=== PATIENT | female | born 1940 | race Caucasian/White ===

== ENCOUNTER 2019-03-27 17:16 | Inpatient (IN) | payer MEDICARE, OTHER ==
[~2019-03-27] VITALS: Ht 165.1 cm; Wt 70.4 kg
[2019-03-27] MEDS ORDERED: SODIUM CHLORIDE 0.9% 1000ML 1,000 ML IV STA (17:41)
[2019-03-27] MEDS ORDERED: TRAMADOL HCL 50 MG TAB PO PRN (18:00)
[2019-03-27] MEDS ORDERED: SODIUM CHLORIDE FLUSH 10 ML SYR INJ PRN (18:00)
[2019-03-27] MEDS ORDERED: ONDANSETRON HCL INJ 2MG/ML 2ML 2 MG/ML VIAL IV PRN (18:00)
[2019-03-27] MEDS ORDERED: DEXTROSE 50% SYRINGE 50 ML IV PRN (18:00)
[2019-03-27 18:29] LABS: BASOPHILS % 0.4 % (0.0-1.0); HEMATOCRIT 33.9 % (34.2-44.1); LYMPHOCYTES # (AUTO) 2.1 (1.0-3.2); LYMPHOCYTES % 28.3 % (18.0-39.1); MEAN CORPUSCULAR HEMOGLOBIN 30.5 pg (28-32); MEAN CORPUSCULAR HGB CONC 32.4 g/dL (31-35); MEAN CORPUSCULAR VOLUME 93.9 fL (81-99); MONOCYTES # (AUTO) 0.8 (0.2-0.8); MONOCYTES % 10.3 % (4.4-11.3); NEUTROPHILS # (AUTO) 4.4 (2.1-6.9); NEUTROPHILS % 60.6 % (38.7-80.0); PLATELET COUNT 214 x10e3/uL (140-360); RED BLOOD COUNT 3.61 x10e6/uL (3.6-5.1); RED CELL DISTRIBUTION WIDTH 14.1 % (11.7-14.4)
[2019-03-27 18:39] LABS: INR 0.95; PROTHROMBIN TIME 13.2 seconds (11.9-14.5)
[2019-03-27 18:40] LABS: PARTIAL THROMBOPLASTIN TIME 28.9 seconds (23.8-35.5)
[2019-03-27 18:51] LABS: ALBUMIN 3.4 g/dL (3.5-5.0); ANION GAP 13.3 mmol/L (8-16); CALCIUM 9.5 mg/dL (8.4-10.2); CREATININE, SERUM 1.42 mg/dL (0.57-1.11); POTASSIUM 4.3 mmol/L (3.5-5.1)
[2019-03-27] MEDS: PIPER-TAZ 3.375 GM 50 ML IV SCH (18:55)
[2019-03-27 18:57] LABS: CREATINE KINASE MB 0.9 ng/mL (0-5.0)
--- NOTE | 2019-03-27 19:13 | Diagnostic Imaging Report ---
EXAMINATION: CHEST SINGLE (PORTABLE) INDICATION: ^ERMD ORDER ^[id number] ^1830 ^Y COMPARISON: None FINDINGS: AP view TUBES and LINES: None. LUNGS: Lungs are well inflated. There is no evidence of pneumonia or pulmonary edema. PLEURA: No pleural effusion or pneumothorax. HEART AND MEDIASTINUM: The cardiomediastinal silhouette is prominent on this AP view. BONES AND SOFT TISSUES: No acute osseous lesion. Soft tissues are unremarkable. UPPER ABDOMEN: No free air under the diaphragm. IMPRESSION: No acute thoracic abnormality. Signed by: Dr. Bean Charles MD on 03/27/2019 7:10 PM
--- NOTE | 2019-03-27 19:17 | Diagnostic Imaging Report ---
FOOT LEFT COMPLETE - 4 views HISTORY: Pain COMPARISON: None available. FINDINGS: Severe demineralization limits evaluation. Status post amputation of the second toe at the level of the metatarsophalangeal joint. No evidence of acute displaced fracture or dislocation. No definite evidence of erosion or periosteal reaction. Mild hallux valgus deformity. Vascular calcifications. Calcaneal enthesophytes. Soft tissue swelling of the midfoot. IMPRESSION: No definite evidence of osteomyelitis. If there is high clinical concern, consider MRI for further evaluation. Signed by: Dr. Bean Charles MD on 03/27/2019 7:14 PM
[2019-03-27 19:20] LABS: BILIRUBIN,URINE NEGATIVE (NEGATIVE); CLARITY,URINE CLEAR (CLEAR); COLOR,URINE YELLOW (YELLOW); KETONES,URINE NEGATIVE (NEGATIVE); LEUKOCYTE ESTERASE ,URINE NEGATIVE (NEGATIVE); NITRITE,URINE NEGATIVE (NEGATIVE); PROTEIN,URINE DIPSTICK NEGATIVE (NEGATIVE); URINE UROBILINOGEN 0.2 mg/dL (0.2 - 1)
[2019-03-27] MEDS: VANCOMYCIN 1GM/NS 250 ML 250 ML IV SCH (19:23)
[2019-03-27 19:31] LABS: BACTERIA,URINE FEW /HPF; EPITHELIAL CELLS,URINE FEW /LPF
--- NOTE | 2019-03-27 22:23 | NUR ---
HS CALLED FOR SITTER
[2019-03-27] MEDS: INSULIN REGULAR, HUMAN 100 UNIT/1 ML 3ML VIAL SQ SCH (22:49)
[2019-03-27] MEDS ORDERED: AMLODIPINE BESYL5 MG PO (22:53)
[2019-03-27] MEDS ORDERED: SERTRALINE HCL25 MG PO (22:53)
[2019-03-27] MEDS ORDERED: DOXEPIN HCL25 MG PO (22:53)
[2019-03-27] MEDS ORDERED: FUROSEMIDE20 MG PO (22:53)
[2019-03-27] MEDS ORDERED: GLIPIZIDE5 MG PO (22:53)
[2019-03-27] MEDS ORDERED: HALOPERIDOL LACTATE 5 MG/ML VIAL IV PRN (23:00)
--- NOTE | 2019-03-27 23:00 | NUR ---
PT PLCED INTO ROOM 1, SITTER AT BEDSIDE Addendum: 03/28/19 at 0338 by CIELO PT PLACED INTO ROOM 1, SITTER AT BEDSIDE
[2019-03-28] MEDS: PIPER-TAZ 3.375 GM 50 ML IV SCH ×3 (03:31→21:00)
--- NOTE | 2019-03-28 05:29 | NUR ---
PT COMPLAINS OF EVE FEET PAIN, PT PLACED ONTO AIR MATRESS AND PAIN MEDICATION GIVEN FOR COMFORT
[2019-03-28] MEDS: VANCOMYCIN 1GM/NS 250 ML 250 ML IV SCH (05:50)
[2019-03-28 06:54] LABS: BASOPHILS % 0.5 % (0.0-1.0); EOSINOPHILS % 0.3 % (0.0-6.0); HEMATOCRIT 29.2 % (34.2-44.1); HEMOGLOBIN 9.3 g/dL (12.0-16.0); LYMPHOCYTES # (AUTO) 1.3 (1.0-3.2); LYMPHOCYTES % 22.9 % (18.0-39.1); MEAN CORPUSCULAR HEMOGLOBIN 30.4 pg (28-32); MEAN CORPUSCULAR HGB CONC 31.8 g/dL (31-35); MEAN CORPUSCULAR VOLUME 95.4 fL (81-99); MONOCYTES # (AUTO) 0.5 (0.2-0.8); MONOCYTES % 8.3 % (4.4-11.3); NEUTROPHILS # (AUTO) 3.9 (2.1-6.9); NEUTROPHILS % 67.7 % (38.7-80.0); PLATELET COUNT 162 x10e3/uL (140-360); RED BLOOD COUNT 3.06 x10e6/uL (3.6-5.1); RED CELL DISTRIBUTION WIDTH 14.1 % (11.7-14.4)
[2019-03-28 07:17] LABS: ALBUMIN 2.6 g/dL (3.5-5.0); ANION GAP 9.7 mmol/L (8-16); CALCIUM 8.4 mg/dL (8.4-10.2); CREATININE, SERUM 1.05 mg/dL (0.57-1.11); POTASSIUM 3.7 mmol/L (3.5-5.1)
[2019-03-28] MEDS ORDERED: ZOLPIDEM TARTRATE 5 MG TAB PO PRN (08:30)
[2019-03-28] MEDS: AMLODIPINE BESYLATE 5 MG TAB PO SCH (08:43)
[2019-03-28] MEDS: SODIUM CHLORIDE 0.45% 1,000 ML IV SCH (08:43)
[2019-03-28] MEDS: DOXEPIN HCL 25 MG CAP PO SCH ×2 (08:43→17:56)
[2019-03-28] MEDS: INSULIN REGULAR, HUMAN 100 UNIT/1 ML 3ML VIAL SQ SCH ×4 (08:43→21:00)
[2019-03-28] MEDS: GLIPIZIDE 5 MG TAB PO SCH (08:55)
--- NOTE | 2019-03-28 08:58 | Pre Op History & Physical ---
CHIEF COMPLAINT: Poorly healing wound in the left foot. HISTORY OF PRESENT ILLNESS: The patient is an 78-year-old woman with [id number] diabetes and hypertension. She had a prior amputation of the 2nd digit of the left foot. She has been receiving wound care for several months at [place], but the wound on her foot has not been healing. She was evaluated by Vascular Surgery and had a venous duplex and arterial duplex that showed monophasic waveforms in the posterior tibial and anterior tibial areas suggestive of improved popliteal peripheral artery disease. She was subsequently referred for peripheral angiogram and possible intervention. PAST MEDICAL HISTORY: 1. Diabetes. 2. Hypertension. 3. Peripheral vascular disease. 4. Chronic renal disease stage 3. SOCIAL HISTORY: The patient is not a smoker. She is not a drinker. ALLERGIES: THE PATIENT HAS NO KNOWN DRUG ALLERGIES. FAMILY HISTORY: Noncontributory. REVIEW OF SYSTEMS: She is not febrile. She has no headache. She is not complaining of chest pain or difficulty breathing. She has no abdominal pain. There is no nausea or vomiting. She does complain of pain in the left foot and poorly healing wound. PHYSICAL EXAMINATION: VITAL SIGNS: The patient is afebrile. The vital signs are stable. HEENT: Shows no facial swelling or erythema. LYMPHATIC: Shows no submandibular, cervical, or supraclavicular adenopathy. CARDIAC: Reveals regular rate and rhythm with normal S1, S2. LUNGS: Auscultation of lungs reveals clear breath sounds bilaterally. There is no wheezing. ABDOMEN: Soft, nontender. There is no rebound or guarding. EXTREMITIES: Shows a prior amputation of the 2nd digit of the left foot. There is a wound in the area of the amputation with some eschar over it. There is no surrounding erythema or pustulant. The patient has poor pulses both in the anterior and the posterior circulations. IMPRESSION: 1. Cellulitis with nonhealing ulceration of the left foot. 2. Peripheral vascular disease with rest pain. 3. Diabetes. 4. Hypertension. PLAN: 1. The patient will be continued on antibiotics. 2. Interventional Cardiology to perform angiogram and possible intervention. 3. Wound care. 4. Podiatry consultation. 5. Monitor blood sugars and blood pressure. MD FELIPE Martinez/MODL /[id number]
--- NOTE | 2019-03-28 11:40 | NUR ---
WOUND CARE CONSULTATION: INITIAL EVALUATION Patient admitted for pain to left foot and non healing left foot wounds. DX; Left Foot Cellulitis, PVD, Non Healing DFU. Dr. Patricio Gama DPM consulted for managed care of foot ulcers. WC Consulted for evaluation and recommendation of foot ulcers. WBC5.77 HGB9.3 HCT29.2 GLU87 ALB3.4 AWV1YPt History Noted Venous Duplex: Monophasic waveforms PT, AT. Suggestive of improved popliteal peripheral artery disease. Patient referred to peripheral angiogram & possible intervention under care of Dr. Umaña. PATIENT VISIT Patient calm cooperative and in good spirits. Greenlandic Speaking Only Denies pain or discomfort. - Left Foot gangrenous ulceration to left foot 2nd toe amputation site. Sutures to proximal aspect still visible and attached to gangrenous tissue. Eschar appears detached at base and firm superficially but boggy at base of wound indicating autolytic debridement taking place. Small open area at center of wound exposing bone of 2nd metatarsal. Wound measures 6x2.5x0.4 probing to bone.No drainage noted. Able to obtain deep culture swab. - Left Foot Lateral - Open ulceration with 90% non-viable tissue. Mostly dry to touch although noted drainage to pillow. 4x2.5.x0.2 IMPRESSION 1. Lower Back & Gluteal Areas - Scattered scabs x2- Stable Healing- Non pressure related. 2. Left Foot DFU grade 3 with PVD, Recent Amputation of 2nd Toe. Non Healin. Left Foot Lateral - Non Healing DFU Grade 3 - RECOMMENDATION 1. Lower Back & Gluteal Areas - Wash with mild soap and water then pat dry thoroughly daily. - Apply Midway Cream q12h and PRN Soiling. 2. Left Foot DFU grade 3 with PVD, Recent Amputation of 2nd Toe. Non Healing: - Cleanse wound with NS and 4x4 gauze daily - Apply Betadine Moistened Gauze dressing Daily 3. Left Foot Lateral - Non Healing DFU Grade 3 - - Cleanse wound with NS and 4x4 gauze daily - Apply Betadine Moistened Gauze dressing Daily 4. Alternating Pressure Air Mattress and set to patient current weight. 5. Offload Heels with Pillows While in bed 6. Turn and Reposition every 2 hours using turning clock schedule. 7. Initiate Moderate PUP Addendum: 03/28/19 at 1159 by Edu Boo RN PATIENT VISIT- CONTINUED: Bilateral Heels intact. No Pressure ulcers noted Bilateral feet difficult to palpate pulses. Mild edema to LLE when compared to right foot Werner Score 16 Diapered. Low back and gluteal areas presents with two annular superficial scabs, non pressure related. Stable. Thank you for consulting with Wound Care. Addendum: 03/28/19 at 1200 by Edu Boo RN Amended: Links added.
[2019-03-28 13:08] VITALS: BP 122/56
[2019-03-28] MEDS: ZINC OXIDE / BALSAM PERU 30 GM TUBE TOP SCH ×2 (14:00→21:00)
--- NOTE | 2019-03-28 16:00 | NUR ---
Patient is refusing to let me start a new IV. Her family is present and trying to calm her down but she is persistently refusing. Will try again later.
--- NOTE | 2019-03-28 17:00 | NUR ---
Notified Jarett of consult and patient is on the floor.
[2019-03-28 17:15] VITALS: BP 157/69
[2019-03-28 17:22] VITALS: BP 157/69
--- NOTE | 2019-03-28 17:45 | NUR ---
Patient continues to let staff start IV.
--- NOTE | 2019-03-28 18:10 | NUR ---
Patient is confused , unable to provide family history for admission
--- NOTE | 2019-03-28 18:31 | NUR ---
IV to right AC area started, 20g x 1 stick.
[2019-03-28 20:00] VITALS: BP 154/81
--- NOTE | 2019-03-28 20:15 | NUR ---
PATIENT CONDITION STABLE WITHOUT ACUTE DISTRESS, SHE HAS A FLAT AFFECT AND A SITTER AT THE BEDSIDE. DR HEWITT SAW THE PATIENT, HE REMOVED THE DRESSING FROM HER LEFT FOOT TO ASSESS HER WOUND. THE SITES ARE BLACK WITHOUT DRAINAGE. WET TO DRY DRESSING WITH BETADINE SOLUTION APPLIED STATED BY THE DOCTOR. UNABLE TO PALPATE THE PULSE TO THE LEFT FOOT BUT IS WAS ASSESSED BY THE DOPPLER. CALL LIGHT WITHIN EASY REACH, SHE QUICKLY WENT TO SLEEP AFTER THE DRESSING CHANGE.
[2019-03-28 21:07] VITALS: BP 154/81
--- NOTE | 2019-03-28 21:26 | Progress Note ---
DATE: Cardiology Progress Note SUBJECTIVE: The patient is seen in the room only this evening and I come to know about this admission only this evening. The patient, Dewayne Joel, is known to me for many years, but she has a chronic left foot ulceration and the patient is being treated by surgery and also ID in [facility] and the patient is brought here for arteriogram and which I will be able to do only on Sunday or so as the patient at this time given IV antibiotics and other medications. We will continue the same medication she was taking. I will also talk to Dr. Acosta, and the prior machine joint cutter. Her wound on the foot is there for more than a few weeks to maybe a few months or so, it is a chronic infection, is not acute infection and also had one toe amputation. I will see this patient thoroughly in am.. MD ROSALES Kelly/INDIA /[id number] MTDHemant
[2019-03-29] VITALS (7 sets, daily range): BP systolic 91–180; BP diastolic 61–79
--- NOTE | 2019-03-29 00:47 | NUR ---
PATIENT IS SOUNDLY ASLEEP, NO RESPIRATORY DISTRESS OBSERVED AND NO ATTEMPTS MADE TO GET OUT OF THE BED. CALL LIGHT WITHIN EASY REACH, SITTER WITH THE PATIENT.
--- NOTE | 2019-03-29 01:12 | Consultation ---
DATE OF CONSULTATION: REASON FOR CONSULTATION: Nonhealing left foot. HISTORY OF PRESENT ILLNESS: Obtained from the chart. She is an 78-year-old female with a history of diabetes and peripheral arterial disease. Apparently, had a 2nd digit amputation done, has been following up with Podiatry at the wound care center at [facility] with a nonhealing 2nd digit amputation site. Unfortunately, this area continues to encrust. Uncertain reason for direct admission, presumably the nonhealing or perhaps increasing pain for the same. I was asked to eval. REVIEW OF SYSTEMS: Eleven-point review of systems negative. PAST MEDICAL HISTORY: Diabetes mellitus, hypertension, peripheral arterial disease, and end-stage renal disease stage 3. SOCIAL HISTORY: Noncontributory. ALLERGIES: NO KNOWN DRUG ALLERGIES. FAMILY HISTORY: Noncontributory. PHYSICAL EXAMINATION: GENERAL: AAO x3. NAD. VITAL SIGNS: Stable. She is afebrile. HEENT: Normocephalic, atraumatic. Anicteric. ABDOMEN: Soft, nontender, and nondistended. RESPIRATORY: Symmetrical expansion. No distress. PSYCHIATRIC: Normal affect. EXTREMITIES: Indeed necrotic. A 2nd digit amputation site with proximal flaps, albeit with flaps nonhealing, significant amount of sclerotic tissue. There is no eschar. Essentially the area is dry. She has poor peripheral pulses. ASSESSMENT: Nonhealing 2nd digit amputation site with also lesions on the mid foot laterally. PLAN: At this point, recommend stabilize vascular assessment, local wound care. Wound Care has been consulted from a Podiatry standpoint, at this point provide no value as highly unlikely that she is a TMA candidate; however, for such decisions, she can definitely go back to Dr. Aparicio who will presumably perform the 2nd digit amputation, but at this point I will sign off and local wound care consistent with Betadine wet-to-dry or per wound care nurses orders. We likely thank Dr. Garcia for the consultation on the patient. ROBERT Parks/MODL /[id number]
[2019-03-29] MEDS: SODIUM CHLORIDE 0.45% 1,000 ML IV SCH ×2 (01:30→10:10)
--- NOTE | 2019-03-29 04:02 | NUR ---
PATIENT REMAINS ASLEEP WITHOUT RESPIRATORY DISTRESS, SHE'S EASY TO AROUSE AND SHE DENIES PAIN. CALL LIGHT WITHIN EASY REACH, SITTER WITH THE PATIENT.
[2019-03-29] MEDS: PIPER-TAZ 3.375 GM 50 ML IV SCH ×3 (05:45→20:57)
--- NOTE | 2019-03-29 05:49 | NUR ---
PATIENT IS INCONTINENT OF URINE, SHE'S REFUSING TO BE CHANGE AND BECOMING VERY COMBATIVE. WILL ATTEMPT LATER TO CHANGE THE PATIENT ONCE SHE'S CALM. SHE ALSO REFUSED TO HAVE BLOOD SPECIMEN COLLECTED.
[2019-03-29] MEDS ORDERED: VANCOMYCIN 1GM/NS 250 ML 250 ML IV SCH ×2 (06:00→14:45)
[2019-03-29] MEDS: INSULIN REGULAR, HUMAN 100 UNIT/1 ML 3ML VIAL SQ SCH ×4 (07:30→21:00)
[2019-03-29] MEDS: ZINC OXIDE / BALSAM PERU 30 GM TUBE TOP SCH ×2 (09:00→21:00)
--- NOTE | 2019-03-29 09:36 | NUR ---
Patient is refusing PO medications, swats at the nurse and medicine when offered. Continues to refuse VS.
[2019-03-29] MEDS: DOXEPIN HCL 25 MG CAP PO SCH ×2 (10:06→16:41)
[2019-03-29] MEDS: GLIPIZIDE 5 MG TAB PO SCH (10:06)
[2019-03-29] MEDS: AMLODIPINE BESYLATE 5 MG TAB PO SCH (10:07)
--- NOTE | 2019-03-29 13:40 | Progress Note ---
DATE: SUBJECTIVE: The patient had a low-grade fever. She is eating well. She has no new complaints. PHYSICAL EXAMINATION: VITAL SIGNS: The patient is afebrile. The blood pressure is 161/79 and saturation is 99%. HEENT: Shows no facial swelling or erythema. CARDIAC: Reveals a regular rate and rhythm with normal S1 and S2. There are no murmurs or rubs. LUNGS: Auscultation of lungs shows clear breath sounds bilaterally. There is no wheezing. ABDOMEN: Soft and nontender. There is no rebound or guarding. EXTREMITIES: Shows a 2nd toe amputation. She has a wound in the area and poor circulation. IMPRESSION: 1. Cellulitis with nonhealing ulceration of the left foot. 2. Severe peripheral vascular disease with rest pain. 3. Diabetes. 4. Hypertension. PLAN: 1. Continue current antibiotics. 2. Await an angiogram and possible atherectomy. 3. Wound care. 4. Monitor blood sugars and blood pressure. Sy Garcia MD Karo/INDIA /[id number]
--- NOTE | 2019-03-29 15:40 | NUR ---
Dr. Dyer is here to see the patient. He said he wants to take her for procedure tomorrow. He said he will call the warehouse receiving supervisor later to see about scheduling procedure.
[2019-03-29 15:56] LABS: BASOPHILS % 0.6 % (0.0-1.0); HEMATOCRIT 32.1 % (34.2-44.1); HEMOGLOBIN 10.2 g/dL (12.0-16.0); LYMPHOCYTES # (AUTO) 1.5 (1.0-3.2); LYMPHOCYTES % 22.9 % (18.0-39.1); MEAN CORPUSCULAR HGB CONC 31.8 g/dL (31-35); MEAN CORPUSCULAR VOLUME 94.4 fL (81-99); MONOCYTES # (AUTO) 0.7 (0.2-0.8); NEUTROPHILS # (AUTO) 4.3 (2.1-6.9); PLATELET COUNT 172 x10e3/uL (140-360); RED CELL DISTRIBUTION WIDTH 14.4 % (11.7-14.4)
[2019-03-29 16:18] LABS: ALBUMIN 2.6 g/dL (3.5-5.0); ALBUMIN/GLOBULIN RATIO 0.9 (0.8-2.0); ANION GAP 11.4 mmol/L (8-16); CALCIUM 8.6 mg/dL (8.4-10.2); POTASSIUM 4.4 mmol/L (3.5-5.1)
[2019-03-29] MEDS: ACETAMINOPHEN 325 MG TAB PO PRN (16:41)
--- NOTE | 2019-03-29 17:00 | NUR ---
I printed the order for consent for procedure with date and time of expected procedure along with facesheet and gave to milk house worker and told them Dr. Ahmadi said he would call "later" to schedule.
--- NOTE | 2019-03-29 18:17 | NUR ---
Attempted to call patient's daughter for telephone consent for procedure. No answer at this time
--- NOTE | 2019-03-29 18:46 | Progress Note ---
DATE: 03/29/2019 SUBJECTIVE: The patient is seen in the room. The patient is stable. Blood pressure is stable and the patient is sleeping. She has dementia also. She has left foot ulceration. Plan, need to have abdominal aortogram, leg runoff studies if possible tomorrow. At this time, the patient is getting IV antibiotics and the patient has arterial disease in the left leg and this procedure done to evaluate peripheral arterial disease. If possible do the vascular intervention of the left leg and the patient's family will sign the consent and I am going to call the today and also in the labor employment associate. Once I talked to the family, probably by this evening, may call the labor employment associate and the patient at this time stable. I ordered an echocardiogram and also an EKG. Lab results are still pending. I am waiting for the renal function also. MD ROSALES Kelly/INDIA /[id number] NEAL
--- NOTE | 2019-03-29 19:45 | NUR ---
PATIENT IS COMBATIVE EVIDENCE BY HITTING THE PRIMARY NURSE WHILE ATTEMPTING TO ASSESS HER. NO RESPIRATORY DISTRESS OBSERVED, SHE DENIES PAIN. SHE REFUSES TO HAVE HER SKIN ASSESSED. CALL LIGHT WITHIN EASY REACH, SITTER WITH THE PATIENT.
--- NOTE | 2019-03-29 20:21 | Consultation ---
DATE OF CONSULTATION: REASON FOR CONSULTATION: Gangrene of her foot, osteomyelitis, recommendation of antibiotic. HISTORY OF PRESENT ILLNESS: Ms. Buchanan is a well-known to me 78-year-old female. The patient was in [place] recently. She does have a history of diabetes mellitus, history of hypertension, history of peripheral vascular disease, history of dementia. The patient has also chronic kidney disease. She had amputation of the 2nd toe on the left foot, but the area was getting progressively worse, necrotic. She was in the hospital on IV antibiotic and discharged to skilled care facility, comes back with worsening condition of her foot with redness and swelling and gangrenous changes. The patient does not really provide any meaningful information, history was taken mainly from the chart. The patient, is known to have a peripheral vascular disease, diabetes mellitus, hypertension, , neuropathy, chronic kidney disease. PAST SURGICAL HISTORY: Amputation of the left 2nd toe. ALLERGIES: NKA. SOCIAL HISTORY: There is no smoking, drug abuse, or alcohol abuse. FAMILY HISTORY: Could not be obtained. REVIEW OF SYSTEMS: According to the family, there are no new changes. PHYSICAL EXAMINATION: GENERAL: She is currently alert, follows commands, does not seem to be in acute distress. VITAL SIGNS: Stable, currently afebrile. HEENT: Normocephalic. Does not appear icteric. NECK: Supple. CHEST: Clear. HEART: S1 and S2. No murmurs. ABDOMEN: Soft. Bowel sounds present. No tenderness. EXTREMITIES: At the left foot, there is erythema. There is edema. There is a 2nd toe amputation site with gangrene. Pulses weak distally. I think the patient has osteomyelitis, she had failed medical treatment, now with cellulitis and progressing with gangrene. Her wound is showing gram-negative bacilli. LABORATORY DATA: Her labs showed a white count of 7.28, hemoglobin 11.0. Her sodium 140, potassium 3.7, creatinine 1.05. BNP 289. The patient is currently on Zosyn. IMAGING DATA: The patient had a foot x-ray when she first came here, showed no evidence of osteo. IMPRESSION: 1. Gangrene of the foot with cellulitis. I agree with Zosyn. We will add vancomycin since the patient has been in the hospital recently. She is at risk for having MRSA. The cultures, I am not so sure, on presented thing, I do not see any positive at the present time, probably skin colonization. 2. Fever. We will give Tylenol p.r.n. 3. Dementia. 4. Chronic kidney disease. We will observe. We will monitor her kidney function closely. PLAN: 1. Discussed with Cardiology. She would benefit from vascular evaluation and the patient is at risk for amputation, TMA versus [id number]. 2. Continue with Zosyn as mentioned above. We will add vancomycin. We will follow trough. We will do vancomycin 1 g q.24. MD ALOK Jordan/MODL /[id number]
[2019-03-29] MEDS: VANCOMYCIN 1GM/NS 250 ML 250 ML IV SCH (21:39)
--- NOTE | 2019-03-29 23:17 | NUR ---
PATIENT IS ASLEEP, SHE'S EASY TO AROUSE. NO RESPIRATORY DISTRESS OBSERVED, DRESSING DRY AND INTACT TO THE LEFT FOOT.
[2019-03-30] VITALS (15 sets, daily range): BP systolic 119–177; BP diastolic 45–99
[2019-03-30] MEDS: SODIUM CHLORIDE 0.45% 1,000 ML IV SCH ×3 (02:05→19:53)
--- NOTE | 2019-03-30 03:45 | NUR ---
PATIENT INCONTINENT OF URINE, SHE'S KEPT CLEAN AND DRY. BED BATH GIVEN WITH HIBICLENS SOLUTION FOR PROCEDURE THIS MORNING. NO RESPIRATORY DISTRESS OBSERVED, SHE DENIES PAIN.
[2019-03-30] MEDS: PIPER-TAZ 3.375 GM 50 ML IV SCH (06:16)
[2019-03-30] MEDS: INSULIN REGULAR, HUMAN 100 UNIT/1 ML 3ML VIAL SQ SCH ×4 (07:30→19:52)
[2019-03-30] MEDS: GLIPIZIDE 5 MG TAB PO SCH (07:30)
--- NOTE | 2019-03-30 08:00 | NUR ---
JAZZY SMITH aware of wound culture results
[2019-03-30] MEDS: DOXEPIN HCL 25 MG CAP PO SCH ×2 (09:00→16:05)
[2019-03-30] MEDS: AMLODIPINE BESYLATE 5 MG TAB PO SCH (09:00)
[2019-03-30] MEDS: ZINC OXIDE / BALSAM PERU 30 GM TUBE TOP SCH ×2 (09:12→21:00)
[2019-03-30] MEDS ORDERED: LIDOCAINE HCL 2% LOCAL 20 ML VIAL ONE (09:23)
[2019-03-30] MEDS ORDERED: IOPAMIDOL 300MG/ML 100 ML INFUS..BTL IV ONE ×2 (09:24→10:59)
[2019-03-30] MEDS ORDERED: HEPARIN SOD/SOD CHLORIDE 2,000 ML ONE (09:24)
[2019-03-30] MEDS ORDERED: MIDAZOLAM HCL 2 MG/2 ML VIAL ONE ×4 (09:26→12:04)
[2019-03-30] MEDS ORDERED: HEPARIN SOD (PORCINE) 1000 UNIT/ML 30ML ONE (09:26)
[2019-03-30] MEDS ORDERED: FENTANYL CITRATE/PF 100MCG/2 ML INJ ONE ×2 (09:27→12:16)
[2019-03-30] MEDS ORDERED: NITROGLYCERIN/D5W 200 MCG/ML 250 ML ONE (09:27)
--- NOTE | 2019-03-30 09:45 | NUR ---
Taken for procedure. No s/s of acute distress noted
--- NOTE | 2019-03-30 10:04 | Progress Note ---
DATE: 03/30/2019 SUBJECTIVE: The patient is confused. She expressed concern about people coming to the room to hurt her and fear that she . Apparently, arrangements were made to do the peripheral angiogram today. PHYSICAL EXAMINATION: VITAL SIGNS: The patient is afebrile. The blood pressure is 119/91 and saturation is 97%. Pulse is 68 and respiratory rate is 18. HEENT: Shows no facial swelling or erythema. The nasal mucosa is normal. The oropharynx is normal. LYMPHATIC: Shows no submandibular, cervical, or supraclavicular adenopathy. NECK: Shows no JVD or thyromegaly. There is no nuchal rigidity. CARDIAC: Reveals a regular rate and rhythm with normal S1 and S2. There are no murmurs or rubs. LUNGS: Auscultation of lungs reveals clear breath sounds bilaterally. There is no wheezing. ABDOMEN: Soft, nontender. There is no rebound or guarding. EXTREMITIES: Show dry gangrene in the left foot. The second toe has been amputated. IMPRESSION: 1. Dry gangrene of the left foot. 2. Severe peripheral vascular disease with rest pain. 3. Metabolic encephalopathy. 4. Moderate protein-calorie malnutrition. 5. Diabetes. 6. Hypertension. PLAN: 1. The patient is scheduled for peripheral angiogram today. 2. The patient will continue antibiotics. 3. Continue wound care. 4. Continue to monitor blood sugars and blood pressure. 5. Speech Therapy consultation. 6. Dietary consultation. 7. Plan discussed with Stephen Byers of Case Management, Dr. Ahmadi of Cardiology, and the patient. Sy Garcia MD [facility]/MODL /[id number]
--- NOTE | 2019-03-30 12:25 | NUR ---
Per Loy RN (charge nurse) patient to be transferred to ICU 191 after procedure. Report called to Dione HARMON of patient's status. Notified Alisia Richards, daughter, of room change.
--- NOTE | 2019-03-30 12:54 | NUR ---
Rec'd patient to Room 191; bedside report from FAUSTINO Diane. Right femoral sheaths x2 in place, no drainage to site, tegaderm dressing intact.
[2019-03-30] MEDS: MEROPENEM 500MG/ NS 50ML 50 ML IV SCH ×2 (13:21→22:31)
[2019-03-30] MEDS ORDERED: CLOPIDOGREL BISULFATE 300 MG TAB-DO NOT STOCK PO ONE (14:30)
[2019-03-30] MEDS: CLONIDINE HCL 0.2 MG TAB PO PRN (15:17)
[2019-03-30] MEDS: ASPIRIN 325 MG TAB PO SCH (15:21)
--- NOTE | 2019-03-30 15:59 | NUR ---
Report given to FAUSTINO Lara.
[2019-03-30] MEDS: ENOXAPARIN SOD INJ 40 MG/0.4 ML SYR SC SCH (16:05)
[2019-03-30] MEDS: HALOPERIDOL LACTATE 5 MG/ML VIAL IV PRN (16:17)
--- NOTE | 2019-03-30 17:19 | Progress Note ---
DATE: 03/30/2019 SUBJECTIVE: The patient was taken to labor service representative for the left foot chrronic infection that was not healing properly and I performed HOSPITAL SECRETARY on the left tibial artery and peroneal artery successfully. Good flow noted. The patient is in ICU at this time and the patient will get aspirin and Plavix per protocol. I am going to use Lovenox 40 mg subcue. after 4 hours. The patient will get IV antibiotic also. The patient is to continue aspirin, Plavix, and other medications and the patient probably will be transferred back to [facility] tomorrow or day after tomorrow once a bed is available in [facility] where she came from. We have to wait at least 4 weeks to 6 weeks to see whether ulcer is healing. In the meantime, she will get antibiotics and wound care and the patient's coronary artery disease, LAD has 70% to 80% lesion that will be treated medically. So only intervention performed only in the left leg arteries on left anterior tibial and left tibioperoneal trunk. The patient in ICU stable condition. MD ROSALES Kelly/MODL /[id number] MTDHemant
--- NOTE | 2019-03-30 19:00 | NUR ---
Bedside report received from Loretta Hansen RN. Pt received resting in bed with eyes open. Pt confused but oriented to self, pt not follow commands and become combative when being assessed or care is being provided, pt is calm with inactivity. Sitter at the bedside. No signs of respiratory distress noted at this time. Venous and arterial sheath in place. Per report from Loretta HARMON the ACT is above criteria to remove arterial sheath at this time and ACT will be rechecked. Also per report from Loretta HARMON the MD gave orders to keep venous sheath in place as IV access for fluid and medication administration.
--- NOTE | 2019-03-30 21:00 | NUR ---
ACT 148. order to remove arterial sheath once ACT is less than 160. Arterial sheath removed at this time with assistance from Luisa Peguero RN. Pressure held per protocol and wedge pressure dressing applied. No signs of hematoma noted at this time.
[2019-03-30] MEDS: VANCOMYCIN 1GM/NS 250 ML 250 ML IV SCH (21:34)
--- NOTE | 2019-03-30 22:25 | Operative Report ---
DATE OF PROCEDURE: 03/30/2019 SURGEON: Vincent Ahmadi MD LOCATION: Procedure done at [facility]. PROCEDURES: 1. Left heart catheterization. 2. Coronary angiogram. 3. Abdominal aortogram. 4. Selective left iliac arteriogram, runoff study. This procedure done under conscious sedation with Versed and fentanyl. I put in two sheaths, one in the right femoral artery and one in the femoral vein, femoral vein sheath is for the IV access. CORONARY ANGIOGRAM: Indications for procedure: History of coronary artery disease, angina pectoris and the patient got chronic ulcer in the left foot. The patient was transferred from [facility] about three days ago with IV antibiotic and the patient also getting possibly mild fever and the procedure done from the right femoral artery access. Results of tests as follows: 1. Coronary Angiogram: Right coronary angiogram shows dominant right coronary artery. Left coronary arteriogram shows the left main artery is normal circumflex. LAD has 70% to 80% mid LAD lesion noted. distally. 2. LV angiogram is not performed. 3. Abdominal aortogram and runoff studies are performed. Abdominal angiogram shows normal abdominal right renal artery is normal. Left iliac and the left SFA are normal and the left popliteal has 30% to 35% plaque is noted. 4. Left anterior tibial artery, peroneal artery, and posterior tibial artery are completely occluded up to distally at the ankle level. I can see some flow in the foot level at metatarsal arteries, some flows were noted. 5. Right leg run-off was performed with abdominal aortogram only up to the mid SFA and found to be normal. INTERVENTION: At this time, I proceeded with intervention of the following arteries, left anterior tibial artery and left tibio peroneal trunk and peroneal l artery. At this time, I was able to cross the diffuse 100% occlusion of the left anterior tibial artery. After that, I dilated with 2 x 150 mm balloon, trunk all the way up to the ankle level and a good KEE-3 flow noted amd opened up completely. We re-approached the left peroneal artery through tibio peroneal trunk . I was able to pass a 1400 wire and I was able to open up with 2 x 150 mm balloon r The artery also opened very well. When we tried to open the left posterior tibial artery, it appears to be chronically occluded. However, there was no reformation of the vessel at the ankle level from the posterior tibial artery. So, I performed a RIG OPERATOR of the left anterior tibial artery and left tibio peroneal trunk and peroneal artery and unsuccessful of crossing the lesion in the left posterior tibial artery, however, there are no reformaton of the distal vesssel at the ankle level. The patient received IV heparin, ACT was kept about 250. I used a Hi-Torque Whisper wire to cross these lesions and guide the Hi-Torque Whisper wire to the lesions and the balloon used are Ultra was 2 mm x 150 mm balloon and 2 mm, 220 mm balloon were used, So, the intervention was performed in the left tibial peroneal trunk, left peroneal artery and the left anterior tibial artery. The course of the procedure is as follows: The procedure done without any complication. The patient received aspirin, Plavix, and I left the femoral artery and femoral vein sheaths in-situ in system. The patient went to ICU in a stable condition, where femoral artery sheath will be removed and the ACT is less than 160. and the femoral venous sheath will be left for IV ACCESS . The patient tolerated the procedure well. MD ROSALES Kelly/INDIA /[id number]
[2019-03-31] VITALS (18 sets, daily range): BP systolic 123–154; BP diastolic 39–82
[2019-03-31] MEDS: MEROPENEM 500MG/ NS 50ML 50 ML IV SCH ×3 (06:22→21:29)
[2019-03-31] MEDS: GLIPIZIDE 5 MG TAB PO SCH (07:30)
[2019-03-31] MEDS: INSULIN REGULAR, HUMAN 100 UNIT/1 ML 3ML VIAL SQ SCH ×4 (07:30→21:42)
[2019-03-31 07:54] LABS: BASOPHILS % 0.4 % (0.0-1.0); HEMATOCRIT 29.5 % (34.2-44.1); HEMOGLOBIN 9.7 g/dL (12.0-16.0); LYMPHOCYTES # (AUTO) 1.5 (1.0-3.2); LYMPHOCYTES % 27.7 % (18.0-39.1); MEAN CORPUSCULAR HEMOGLOBIN 30.4 pg (28-32); MEAN CORPUSCULAR HGB CONC 32.9 g/dL (31-35); MEAN CORPUSCULAR VOLUME 92.5 fL (81-99); MONOCYTES # (AUTO) 0.7 (0.2-0.8); NEUTROPHILS # (AUTO) 3.1 (2.1-6.9); NEUTROPHILS % 58.5 % (38.7-80.0); PLATELET COUNT 141 x10e3/uL (140-360); RED BLOOD COUNT 3.19 x10e6/uL (3.6-5.1); RED CELL DISTRIBUTION WIDTH 14.4 % (11.7-14.4)
[2019-03-31 08:12] LABS: ANION GAP 13.8 mmol/L (8-16); BLOOD UREA NITROGEN 15 mg/dL (7-26); BUN/CREATININE RATIO 19 (6-25); CALCIUM 8.4 mg/dL (8.4-10.2); CARBON DIOXIDE 18 mmol/L (22-29); CHLORIDE 108 mmol/L (98-107); CREATININE, SERUM 0.78 mg/dL (0.57-1.11); EST GLOMERULAR FILTRATION RATE > 60 ML/MIN (60-); GLUCOSE 81 mg/dL (74-118); POTASSIUM 3.8 mmol/L (3.5-5.1); SODIUM 136 mmol/L (136-145)
[2019-03-31] MEDS: CLOPIDOGREL BISULFATE 75 MG TAB PO SCH (08:21)
[2019-03-31] MEDS: DOXEPIN HCL 25 MG CAP PO SCH ×2 (08:21→16:11)
[2019-03-31] MEDS: ASPIRIN 325 MG TAB PO SCH (08:21)
[2019-03-31] MEDS: AMLODIPINE BESYLATE 5 MG TAB PO SCH (08:21)
[2019-03-31] MEDS: ACETAMINOPHEN 325 MG TAB PO PRN (08:22)
[2019-03-31] MEDS: ZINC OXIDE / BALSAM PERU 30 GM TUBE TOP SCH ×2 (08:55→20:54)
[2019-03-31] MEDS: SODIUM CHLORIDE 0.45% 1,000 ML IV SCH (10:36)
--- NOTE | 2019-03-31 11:03 | Progress Note ---
DATE: 03/31/2019 Pulmonary Progress Note SUBJECTIVE: The patient went for peripheral arteriogram and atherectomy yesterday. She tolerated the procedure well. She is still confused. PHYSICAL EXAMINATION: VITAL SIGNS: The blood pressure is 127/80 and the pulse is 79. The respiratory rate is 18. HEENT: Shows no facial swelling or erythema. The nasal mucosa is normal. LYMPHATIC: Shows no submandibular, cervical or supraclavicular adenopathy. NECK: Shows no JVD or thyromegaly. CARDIAC: Reveals regular rate and rhythm with normal S1 and S2. LUNGS: Auscultation of lungs reveals clear breath sounds bilaterally. There is no wheezing. ABDOMEN: Soft, nontender. There is no rebound or guarding. EXTREMITIES: There is a wound on the left foot. The patient has some dry gangrene. LABORATORY DATA: The BUN to creatinine ratio is normal. The bicarbonate is 18. IMPRESSION: 1. Dry gangrene of the left foot. 2. Severe peripheral vascular disease. 3. Metabolic encephalopathy. 4. Moderate protein calorie malnutrition. 5. Diabetes. 6. Hypertension. PLAN: 1. Continue current antibiotics. 2. Wound care. 3. Dietary consultation and nutritional supplementation. 4. Monitor mental status. 5. Change fluids to half-normal saline to avoid hyperchloremia. yS Garcia MD [facility]/MODL /[id number]
[2019-03-31] MEDS ORDERED: ENOXAPARIN SOD INJ 40 MG/0.4 ML SYR SC SCH (11:15)
--- NOTE | 2019-03-31 12:00 | NUR ---
PATIENT IS NON AMBULATORY X 3 YRS PER FAMILY
--- NOTE | 2019-03-31 13:03 | Progress Note ---
DATE: 03/31/2019 Cardiology Consultation and Followup Summary DIAGNOSES: 1. Acute and chronic infection of the left distal foot and amputation of one of the toes. The patient has still infection on the left foot. 2. Peripheral artery disease on the left leg arteries. Doppler study shows significant peripheral disease below the knee. 3. Hypertension. 4. Dementia. 5. Intermittent chest pains. PROCEDURES: 1. Echocardiogram. 2. Left heart catheterization. 3. Coronary angiogram. 4. Abdominal aortogram. 5. Left leg runoff studies. 6. PUBLIC INFORMATION COORDINATOR of the left anterior tibial artery and tibial peroneal trunk and peroneal artery on the left side successfully on 03/30/2019. The patient is seen in the ICU today and yesterday of the procedure, before that the patient was in the regular floor. The patient is transferred from [place] where she was taken care of by clinical psychologist private practice and also Infectious Disease specialist, Dr. Bailey, and the patient also seen by a surgeon. I do not know the name and the patient known to me for many years and as mentioned, Doppler study below the knee was abnormal, and Dr. Peacock, staff respiratory therapist saw also the patient, after coming to know that I was treating the patient in the past, the patient was transferred to the emergency room same day, on Sunday, and I requested Dr. Sy Garcia to be a admitting doctor. Dr. Sy Garcia accepted the patient, admitted through the ER. I saw the patient on day of admission, in the evening, that is, I saw only Sunday evening and I come to know that the patient admitted and at that time, the patient has a left foot chronic infection with acute exacerbation of infection also, one of the toes is also amputated and I discussed with the family members, and I wanted to do the procedure probably this weekend, so I got the permission from the AO and procedure is scheduled on Sunday that is on 03/30/2019, and the patient underwent heart catheterization, abdominal aortogram, left leg arteriogram, intervention of the LETI and the tibioperoneal trunk and the tibioperoneal artery/successfully undergoing angiogram showed the patient has got a 70% lesion to the distal LAD. LVEF by echo by 66% with calcification of the aortic valve. Mitral anulus is noted. At this time, we had to wait at least 4-6 weeks and see whether angioplasty has improved the circulation and whether the wound is healing. However, there is some place that appears to be a chronic infection and may be related to gangrenous too, so infection part probably would heal and that needs to be seen only after 4-6 weeks. Meantime, the patient need to get IV antibiotics. My point of view, the patient will be transferred back to [place] and I will discuss with the Dr. Sy Garcia also whether it is feasible to do that. Probably, we will do it on Sunday or Sunday when the director case available and then today, the patient may be moved out of ICU to the regular floor cardiac point of view. However, the patient is getting IV antibiotics at this time and the patient is sometimes very much confused because of some dementia. Anyhow, I will continue to follow the patient in inpatient hospital and the patient will also get aspirin, Plavix as ordered and also anticholesterol medication. MD ROSALES Kelly/INDIA /[id number]
--- NOTE | 2019-03-31 13:28 | NUR ---
REMOVED RIGHT FEMORAL VENOUS SHEATH REMOVED AFTER INSERTING LEFT FA 20 G PIV.
--- NOTE | 2019-03-31 14:50 | NUR ---
WRAPPED LEFT PIV SITE WITH COBAN TO SECURE IN PLACE. PATIENT PEELING AWAY TEGADERM OF NEWLY INSERTED PIV.
[2019-03-31] MEDS: HALOPERIDOL LACTATE 5 MG/ML VIAL IV PRN (15:50)
--- NOTE | 2019-03-31 15:54 | NUR ---
PATIENT ATTEMPTING TO REMOVE GOWN AND IV. SHE STATES THAT SHE NEEDS TO GO HOME AND COOK. REORIENTED PATIENT AND MEDICATED WITH HALDOL. 1:1 SITTER AT BEDSIDE
[2019-03-31] MEDS: ENOXAPARIN SOD INJ 40 MG/0.4 ML SYR SC SCH (16:11)
--- NOTE | 2019-03-31 16:12 | NUR ---
TELE BOX #[id number] APPLIED. AWAITING CALL BACK TO GIVE REPORT TO M/S FAUSTINO
--- NOTE | 2019-03-31 16:30 | NUR ---
CALLED AND L/M WITH PATIENT'S DAUGHTER MILENA TIMOTHY CANTOR REGARDING ROOM UPCOMING TRANSFER TO 201 Addendum: 03/31/19 at 1646 by Breanne Ramirez RN SPOKE WITH TIMOTHY CANTOR AND GAVE NEW ROOM #
--- NOTE | 2019-03-31 17:00 | NUR ---
pt recd to floor resp even and unlabored, no distress noted pt has sitter at bedside. call light in reach.
--- NOTE | 2019-03-31 19:29 | NUR ---
report given to oncoming nurse, for continued care.
[2019-03-31] MEDS: ATORVASTATIN 10 MG TAB PO SCH (20:55)
[2019-03-31] MEDS: VANCOMYCIN 1GM/NS 250 ML 250 ML IV SCH (21:42)
[2019-04-01] VITALS (9 sets, daily range): BP systolic 130–181; BP diastolic 66–91
[2019-04-01] MEDS: SODIUM CHLORIDE 0.45% 1,000 ML IV SCH (05:19)
[2019-04-01] MEDS: MEROPENEM 500MG/ NS 50ML 50 ML IV SCH ×3 (05:19→21:10)
[2019-04-01 06:16] LABS: BASOPHILS % 0.4 % (0.0-1.0); HEMATOCRIT 31.7 % (34.2-44.1); HEMOGLOBIN 10.2 g/dL (12.0-16.0); LYMPHOCYTES # (AUTO) 1.3 (1.0-3.2); LYMPHOCYTES % 23.8 % (18.0-39.1); MEAN CORPUSCULAR HEMOGLOBIN 29.7 pg (28-32); MEAN CORPUSCULAR HGB CONC 32.2 g/dL (31-35); MEAN CORPUSCULAR VOLUME 92.4 fL (81-99); MONOCYTES # (AUTO) 0.6 (0.2-0.8); MONOCYTES % 11.6 % (4.4-11.3); NEUTROPHILS # (AUTO) 3.5 (2.1-6.9); NEUTROPHILS % 63.1 % (38.7-80.0); PLATELET COUNT 140 x10e3/uL (140-360); RED BLOOD COUNT 3.43 x10e6/uL (3.6-5.1); RED CELL DISTRIBUTION WIDTH 14.3 % (11.7-14.4)
--- NOTE | 2019-04-01 06:21 | Diagnostic Imaging Report ---
EXAMINATION: CHEST SINGLE (PORTABLE) COMPARISON: Chest x-ray/ INDICATION: ^CHF DISCUSSION: Frontal view of the chest obtained at 0543 hours. HEART AND MEDIASTINUM: The heart is top normal in size. Aortic arch is tortuous. LINES: None. LUNGS: Mild left basilar atelectasis. Right lung is clear. No interstitial edema or vascular congestion. PLEURA: Trace blunting of the costophrenic angles. BONES AND SOFT TISSUES: Stable. IMPRESSION: No evidence of CHF. Left basilar atelectasis. Small lateral pleural effusions cannot be excluded. Signed by: Dr. Felicita Pickens MD on 04/01/2019 6:17 AM
[2019-04-01 06:37] LABS: ALANINE AMINOTRANSFERASE 11 IU/L (0-55); ALBUMIN 2.7 g/dL (3.5-5.0); ALBUMIN/GLOBULIN RATIO 0.9 (0.8-2.0); ALKALINE PHOSPHATASE 109 IU/L (40-150); ANION GAP 12.1 mmol/L (8-16); BLOOD UREA NITROGEN 16 mg/dL (7-26); BUN/CREATININE RATIO 19 (6-25); CALCIUM 8.5 mg/dL (8.4-10.2); CARBON DIOXIDE 20 mmol/L (22-29); CHLORIDE 108 mmol/L (98-107); CREATININE, SERUM 0.85 mg/dL (0.57-1.11); EST GLOMERULAR FILTRATION RATE > 60 ML/MIN (60-); GLUCOSE 147 mg/dL (74-118); POTASSIUM 4.1 mmol/L (3.5-5.1); SODIUM 136 mmol/L (136-145)
[2019-04-01] MEDS: INSULIN REGULAR, HUMAN 100 UNIT/1 ML 3ML VIAL SQ SCH ×4 (07:30→21:10)
[2019-04-01] MEDS: ZINC OXIDE / BALSAM PERU 30 GM TUBE TOP SCH ×2 (09:40→21:10)
[2019-04-01] MEDS: DOXEPIN HCL 25 MG CAP PO SCH ×2 (09:40→17:00)
[2019-04-01] MEDS: AMLODIPINE BESYLATE 5 MG TAB PO SCH (09:40)
[2019-04-01] MEDS: GLIPIZIDE 5 MG TAB PO SCH (09:40)
[2019-04-01] MEDS: ASPIRIN 325 MG TAB PO SCH (09:40)
[2019-04-01] MEDS: CLOPIDOGREL BISULFATE 75 MG TAB PO SCH (09:40)
--- NOTE | 2019-04-01 09:51 | Progress Note ---
DATE: SUBJECTIVE: The patient has no new complaints. She is still confused, but less agitated. PHYSICAL EXAMINATION: VITAL SIGNS: The patient is afebrile. The vitals are stable. HEENT: Shows no facial swelling or erythema. CARDIAC: Reveals a regular rate and rhythm with normal S1 and S2. LUNGS: Auscultation of lungs shows clear breath sounds bilaterally. There is no wheezing. ABDOMEN: Soft, nontender. There is no rebound or guarding. EXTREMITIES: Shows a wound on the left foot consistent with dry gangrene. IMPRESSION: 1. Dry gangrene of the left foot. 2. Severe peripheral vascular disease. 3. Metabolic encephalopathy. PLAN: 1. Continue wound care. 2. Continue current antibiotics. 3. Discuss disposition with Dr. Acosta and Dr. Ahmadi. MD FELIPE Martinez/INDIA /[id number]
[2019-04-01] MEDS ORDERED: ONDANSETRON HCL 4 MG ORAL DISINTEGRATING TAB PO PRN (14:45)
[2019-04-01] MEDS: ENOXAPARIN SOD INJ 40 MG/0.4 ML SYR SC SCH (17:00)
--- NOTE | 2019-04-01 18:56 | NUR ---
Nutrition Intervention Note RD Recommendation(s) for Physician: -Continue ADA 1800 diet as ordered -Rec Ensure BID to increase protein-calorie intake -Rec MVi w/minerals and vitamin C for wound healing Plan of Care: RD following, monitoring for tolerance and adequacy, ONS rec Nutrition reason for involvement: LOS RD Assessment (04/01) Chart reviewed. Labs and meds reviewed. 78yo F, who was admitted for poorly healing wound in the left foot. Pt was discussed during AM rounds. Possible L BKA? Non-ambulatory. Sitter presents on bedside. Pt remains confused. Per sitter, pt has had fair appetite with ~50% meal intake. No GI complains noted. No chewing or swallowing issue observed. No family on bedside. Will continue to monitor and follow. Principal Problems/Diagnoses: 1. Dry gangrene of the left foot. 2. Severe peripheral vascular disease. 3. Metabolic encephalopathy. PMH: DM, HTN, PVD, CKD III GI: abdomen soft, large, flatus present Skin: 1. Lower Back & Gluteal Areas - Scattered scabs x2- Stable Healing- Non pressure related. 2. Left Foot DFU grade 3 with PVD, Recent Amputation of 2nd Toe. Non Healin. Left Foot Lateral - Non Healing DFU Grade 3 - Labs: (04/01) Glucose 86 - 190 Meds: abx, insulin, plavix, glucotrol, NaCl, Ht: 65in Wt: 155.44lb BMI: 25.9kg/m2 IBW: 125lb Malnutrition Evaluation (04/01) The patient does not meet criteria for a specified degree of malnutrition at this time. Will re-evaluate at follow-up as appropriate. Nutrition Prescription (Diet Order): ADA 1800 Estimated Nutritional Needs: Calories: 1750 2100kcal(25-30kcal/kg/d) Weight used : CBW Protein: 105 140g (1.5-2g/kg/d) Weight used: CBW Diet Adequacy: Not meeting calorie needs, Not meeting protein needs Diet Education Needs Assessment: Diet education indicated, but patient not appropriate for education at this time. Nutrition Care Level: low Nutrition Diagnosis: Increased protein needs related to altered skin integrity as evidenced by poor wound healing of the left foot. Goal: Patient will meet 75-100% of estimated needs by follow up Progress: N/A Interventions: Modified diet, Commercial beverage, MVi w/minerals Monitoring/Evaluation: Total energy intake, Total protein intake, Modified diet, Liquid supplement, Weight change Signed: Kenia Meyer MS, RD, LD
--- NOTE | 2019-04-01 19:30 | NUR ---
report given to oncoming nurse, for continued care,
[2019-04-01] MEDS: ATORVASTATIN 10 MG TAB PO SCH (21:10)
[2019-04-01] MEDS: VANCOMYCIN 1GM/NS 250 ML 250 ML IV SCH (22:15)
[2019-04-01] MEDS: CLONIDINE HCL 0.2 MG TAB PO PRN (23:02)
[2019-04-02] VITALS (7 sets, daily range): BP systolic 109–144; BP diastolic 50–63
[2019-04-02] MEDS: SODIUM CHLORIDE 0.45% 1,000 ML IV SCH ×2 (02:15→16:31)
[2019-04-02] MEDS: MEROPENEM 500MG/ NS 50ML 50 ML IV SCH ×3 (05:19→23:00)
[2019-04-02] MEDS: INSULIN REGULAR, HUMAN 100 UNIT/1 ML 3ML VIAL SQ SCH ×4 (07:30→21:00)
[2019-04-02] MEDS: ZINC OXIDE / BALSAM PERU 30 GM TUBE TOP SCH ×2 (09:00→21:30)
[2019-04-02] MEDS: CLOPIDOGREL BISULFATE 75 MG TAB PO SCH (10:00)
[2019-04-02] MEDS: GLIPIZIDE 5 MG TAB PO SCH (10:00)
[2019-04-02] MEDS: DOXEPIN HCL 25 MG CAP PO SCH ×2 (10:00→16:29)
[2019-04-02] MEDS: ASPIRIN 325 MG TAB PO SCH (10:00)
[2019-04-02] MEDS: AMLODIPINE BESYLATE 5 MG TAB PO SCH (10:00)
--- NOTE | 2019-04-02 14:44 | Progress Note ---
DATE: SUBJECTIVE: The patient still becomes agitated easily. Otherwise, she has no new complaints. OBJECTIVE: VITAL SIGNS: The patient is afebrile. The vital signs are stable. HEENT: Shows no facial swelling or erythema. CARDIAC: Reveals regular rate and rhythm with normal S1 and S2. There are no murmurs or rubs heard. LUNGS: Auscultation of lungs shows clear breath sounds bilaterally. There is no wheezing. ABDOMEN: Soft, nontender. There is rebound or guarding. EXTREMITIES: Show no leg edema or calf tenderness. There is no cyanosis or clubbing. SKIN: Shows no rashes. IMPRESSION: 1. Dry gangrene of the foot. 2. Severe peripheral vascular disease. 3. Organic brain syndrome. PLAN: 1. Continue current antibiotics. 2. Wound Care. 3. Discussed disposition with Cardiology and Infectious Disease. MD FELIPE Martinez/INDIA /[id number]
[2019-04-02] MEDS: ENOXAPARIN SOD INJ 40 MG/0.4 ML SYR SC SCH (16:29)
--- NOTE | 2019-04-02 19:50 | Progress Note ---
DATE: Cardiology Progress Note SUBJECTIVE: The patient is seen in the room. The patient is sleeping. The patient following up for hypertension, CAD, and also vascular disease. The patient underwent percutaneous transluminal angioplasty of the left anterior tibial artery and tibioperoneal trunk and peroneal artery about 3 days ago. The patient is hemodynamically stable. The patient's left foot still has dressing. Attorney Lawyer and Infectious Disease following the patient for probably at least four weeks of post angioplasty to see the results. However, the patient is getting IV antibiotics and the patient's blood pressure is fairly controlled. The patient has moderate coronary artery disease, single vessel. Continue present medication. There is no further cardiac evaluation planned at this time. However, the patient is getting IV antibiotic for wound therapy. I will continue to follow the patient from cardiac point of view. The patient's family wanted to go back to [place] when she is ready to be sent. The family wishes to go back to [facility]. Otherwise, the patient is stable. MD ROSALES Kelly/MODL /[id number]
[2019-04-02] MEDS: ATORVASTATIN 10 MG TAB PO SCH (21:55)
[2019-04-02] MEDS: VANCOMYCIN 1GM/NS 250 ML 250 ML IV SCH (21:55)
[2019-04-03 04:00] VITALS: BP 163/80
[2019-04-03] MEDS: MEROPENEM 500MG/ NS 50ML 50 ML IV SCH ×2 (05:21→14:00)
[2019-04-03] MEDS: INSULIN REGULAR, HUMAN 100 UNIT/1 ML 3ML VIAL SQ SCH ×3 (07:30→16:22)
[2019-04-03 08:02] VITALS: BP 172/81
[2019-04-03] MEDS: ZINC OXIDE / BALSAM PERU 30 GM TUBE TOP SCH (09:00)
[2019-04-03] MEDS: GLIPIZIDE 5 MG TAB PO SCH (09:12)
[2019-04-03] MEDS: DOXEPIN HCL 25 MG CAP PO SCH ×2 (09:12→16:22)
[2019-04-03] MEDS: ASPIRIN 325 MG TAB PO SCH (09:12)
[2019-04-03] MEDS: AMLODIPINE BESYLATE 5 MG TAB PO SCH (09:12)
[2019-04-03] MEDS: CLOPIDOGREL BISULFATE 75 MG TAB PO SCH (09:12)
[2019-04-03 09:15] VITALS: BP 172/81
[2019-04-03 11:09] VITALS: BP 123/64
--- NOTE | 2019-04-03 11:58 | NUR ---
CALLED BUSINESS OFFICE ON THIS PT, ONLY SHOWING YEN ON FACESHEET FOR BENEFITS. CALLED [facility] TO DETERMINE IT WAS THEIR PATIENT AND IS ABLE TO RETURN UPON GETTING ORDER. THEY CAN DO CANINE SERVICE INSTRUCTOR TRAINER ANTIBIOTICS
--- NOTE | 2019-04-03 15:31 | NUR ---
PT ACCEPTED TO RETURN TO [facility] [address] , [facility] [id number], CALL REPORT TO [phone] [facility] SPOKE WIHT DAUGHTER TIMOTHY CANTOR GOT PERMISSION TO TRANSPORT PT VIA AMBULANCE TO FACILITY AND ALSO EDUCATED ABOUT IMM VIA PHONE.
[2019-04-03 15:36] VITALS: BP 144/65
[2019-04-03] MEDS: ENOXAPARIN SOD INJ 40 MG/0.4 ML SYR SC SCH (16:22)
--- NOTE | 2019-04-03 17:02 | NUR ---
Report called to Priscilla at [facility]. Dr. Garcia is aware of transfer. Patient's daughter, Alisia was notified by case management
--- NOTE | 2019-04-03 19:38 | NUR ---
EMS HERE TO SHOE FOLDER PATIENT TO [facility]. DAUGHTER TIMOTHY AWARE. DR CHEW AWARE OF THE TRANSFERRING
--- NOTE | 2019-04-03 22:52 | Progress Note ---
DATE: 04/03/2019 Cardiology progress note. SUBJECTIVE: The patient is seen in the room. The patient is awake, alert. DIAGNOSES: 1. Systemic hypertension. 2. Left foot ulceration and a SQL TECH of the left anterior tibial artery and left tibioperoneal trunk 3 days ago. 3. Hypertension. 4. Coronary artery disease. Mrs. Marycruz Buchanan transferred from [facility] for evaluation and treatment of the left foot ulceration. Since that time, the patient underwent a SQL TECH and stent placement of anterior tibial artery and tibioperoneal trunk. At this time, still wound is there. The patient is seen by the server systems administrator and intake specialist. The patient is going to go to the [facility], where she will be followed with IV antibiotics. I have discussed with the family members we have to watch at least for next four weeks to see the results of them, vascular intervention of the left foot whether she is showing any signs of healing. Meantime, continue all the medications including antibiotics. The patient is in sensitive condition. The patient got dementia. No history of congestive heart failure or angina at this time. MD ROSALES Kelly/INDIA /[id number]
--- NOTE | 2019-04-04 05:43 | Discharge Summary ---
DISCHARGE DIAGNOSES: 1. Dry gangrene of left foot with associated cellulitis and sepsis, present on admission. 2. Peripheral vascular disease with rest pain. 3. Metabolic encephalopathy. 4. Moderate protein-calorie malnutrition. 5. Hypertension. 6. Diabetes. CONSULTING PHYSICIAN: 1. Dr. Ahmadi of Cardiology. 2. Dr. Acosta of Infectious Disease. 3. Dr. Curry of Podiatry. PROCEDURES: Peripheral arteriogram with atherectomy of the peroneal artery and the anterior tibial artery in the left lower extremity. DISCHARGE MEDICATIONS: 1. Vancomycin 1 g IV q.24 hours. 2. Piperacillin/tazobactam IV q.8 hours. 3. Tramadol p.r.n. 4. Amlodipine 5 mg p.o. daily. 5. Glipizide 2.5 mg p.o. daily. 6. Clonidine p.r.n. 7. Doxepin 25 mg b.i.d. 8. Ambien 5 mg p.o. at bedtime. HISTORY OF PRESENT ILLNESS: The patient is an 78-year-old woman. She has a history of organic brain syndrome. She also has a history of severe peripheral vascular disease and a poorly healing wound on her left foot. She was seen at [place] and receiving wound care. She also had a prior amputation of the 2nd digit. She developed worsening erythema and cellulitis and was sent to the hospital. HOSPITAL COURSE: The patient was admitted with cellulitis, dry gangrene and associated sepsis. She was seen by Podiatry as well as Infectious Disease and Cardiology. Her wound care was continued. Her antibiotics were continued. She had a peripheral angiogram with atherectomies of the peroneal and anterior tibial arteries. Her hospital course was complicated by confusion. She required a sitter. During the course of the hospitalization and treatment of her infection, her mental status gradually improved and the sitter was removed. She was also seen by Dietary and started on nutritional supplementation. DISPOSITION: The patient will be discharged to [facility]. She will continue the antibiotics. She will follow up with Dr. Acosta of Infectious Disease as well as with Dr. Ahmadi of Cardiology. Sy Garcia MD [facility]/INDIA /[id number]
== END 2019-04-03 19:35 | DRG 853 ==
LOC: ER 17:16 → ERHOLD 18:15 → MED/SURG2 03-28 13:04 → ICU 03-30 12:26 → MED/SURG2 03-31 17:05
PROVIDERS: ADMIT Internal Medicine Critical Care Medicine; ATTEND Internal Medicine Critical Care Medicine
PROC: 047Q3Z1 Dilation of Left Anterior Tibial Artery using Drug-Coated Balloon, Percutaneous Approach (ICD-10-PCS; principal; 2019-03-30)
PROC: 047U3Z1 Dilation of Left Peroneal Artery using Drug-Coated Balloon, Percutaneous Approach (ICD-10-PCS; 2019-03-30)
PROC: 4A023N7 Measurement of Cardiac Sampling and Pressure, Left Heart, Percutaneous Approach (ICD-10-PCS; 2019-03-30)
PROC: B2111ZZ Fluoroscopy of Multiple Coronary Arteries using Low Osmolar Contrast (ICD-10-PCS; 2019-03-30)
PROC: B2151ZZ Fluoroscopy of Left Heart using Low Osmolar Contrast (ICD-10-PCS; 2019-03-30)
PROC: B41D1ZZ Fluoroscopy of Aorta and Bilateral Lower Extremity Arteries using Low Osmolar Contrast (ICD-10-PCS; 2019-03-30)
DX: A41.9 Sepsis, unspecified organism (principal); G92 Toxic encephalopathy; L03.116 Cellulitis of left lower limb; E11.52 Type 2 diabetes mellitus with diabetic peripheral angiopathy with gangrene; I70.262 Atherosclerosis of native arteries of extremities with gangrene, left leg; E44.0 Moderate protein-calorie malnutrition; I96 Gangrene, not elsewhere classified; M86.8X7 Other osteomyelitis, ankle and foot; L97.529 Non-pressure chronic ulcer of other part of left foot with unspecified severity; B96.1 Klebsiella pneumoniae [K. pneumoniae] as the cause of diseases classified elsewhere; Z16.12 Extended spectrum beta lactamase (ESBL) resistance; F03.90 Unspecified dementia, unspecified severity, without behavioral disturbance, psychotic disturbance, mood disturbance, and anxiety; E11.69 Type 2 diabetes mellitus with other specified complication; E11.22 Type 2 diabetes mellitus with diabetic chronic kidney disease; I12.9 Hypertensive chronic kidney disease with stage 1 through stage 4 chronic kidney disease, or unspecified chronic kidney disease; T87.54 Necrosis of amputation stump, left lower extremity; N18.3 Chronic kidney disease, stage 3 (moderate); F09 Unspecified mental disorder due to known physiological condition; I25.10 Atherosclerotic heart disease of native coronary artery without angina pectoris; I70.228 Atherosclerosis of native arteries of extremities with rest pain, other extremity
CPT/HCPCS: 36247; 36415; 37228; 37232; 71045; 75625; 75710; 80048; 80053; 80202; 81001; 82550; 82553; 82948; 83036; 83605; 83880; 84484; 85025; 85610; 85730; 87040; 87071; 87086; 87186; 87205; 93005; 93306; 93454; 96361; 96367; 97139; C1725; C1766; C1887; J1630; J1644; J1650; J2001; J2250; J2543; J3370; J7030; Q9967